=== PATIENT | male | born 1990 | race Caucasian/White ===

== ENCOUNTER 2020-10-31 13:00 | Inpatient (IN) | payer OTHER ==
[~2020-10-31] VITALS: Ht 198.1 cm; Wt 88.8 kg
--- NOTE | 2020-10-31 13:16 | NUR ---
PT STRAIGHT BACKED TO ROOM AT THIS TIME. PT PLACED INTO GURNEY AND CHANGED INTO GOWN. SEIZURE PADS IN PLACE AT THIS TIME. PT ATTACHED TO VS AND CYCLE COUNTER. TECH AT BS FOR EKG AND AT BS FOR PT HISTORY. PER PT AND SPOUSE, PT IS AN ALCOHOLIC WHO HAD 3 COCKTAILS TODAY, LAST ONE 1.5 HOURS PRIOR TO ARRIVAL AT ED. PT POST ICTAL BUT AAOX3 AT THIS TIME. PT GCS 15. PT AND SPOUSE EDUCATED ON ER PROCESS AND VERBALIZES UNDERSTANDING. CALL LIGHT IS WITHIN REACH.
--- NOTE | 2020-10-31 14:00 | NUR ---
REPORT OF PT TO JUDI TORRES. ALL QUESTIONS ANSWERED.
--- NOTE | 2020-10-31 14:17 | NUR ---
ASSUMED CARE OF PT FROM JUDI ANDERSON. PT RESTING IN [facility], MONITORING IN PLACE, VIK AT THIS TIME, JAMEE.
--- NOTE | 2020-10-31 14:31 | NUR ---
PT AMBULATED STEADILY TO RESTROOM. PT BACK TO ROOM, RESTING IN [facility] HECTOR AT THIS TIME, JAMEE.
[2020-10-31 14:40] LABS: ALBUMIN 4.1 g/dL (3.4-5.0); ANION GAP 12 mmol/L (5-15); CALCIUM 8.9 mg/dL (8.5-10.1); CHLORIDE 99 mmol/L (98-107); CREATININE 1.12 mg/dL (0.7-1.3)
[2020-10-31 14:57] LABS: MEAN CORPUSCULAR HEMOGLOBIN 32.1 pg (27.5-34.5); MEAN CORPUSCULAR HGB CONC 35.4 g/dL (33.2-36.2); PLATELET COUNT 88 x10^3/uL (130-400); RED BLOOD COUNT 4.68 x10^6/uL (4.38-5.82); RED CELL DISTRIBUTION WIDTH 12.3 % (9.4-14.8)
[2020-10-31] MEDS ORDERED: SODIUM CHLORIDE FLUSH 10ML SYR IVF ONE (15:00)
[2020-10-31] MEDS ORDERED: POTASSIUM CHLORIDE 20 MEQ PACKET PO ONE (15:00)
[2020-10-31] MEDS ORDERED: POTASSIUM CHLORIDE 40 MEQ in SODIUM CHLORIDE 0.9% 500 ML IV ONE ×2 (15:00→18:30)
--- NOTE | 2020-10-31 15:16 | NUR ---
report recvd from Gianni LAU and jeovany assumed.
[2020-10-31 15:45] LABS: MD YES
[2020-10-31] MEDS ORDERED: POTASSIUM CHLORIDE 20 MEQ PACKET ONE (15:45)
[2020-10-31 15:48] LABS: <PLATELET ESTIMATE> DECREASED; <PLT MORPHOLOGY> NORMAL PLT MORPH; <RBC MORPHOLOGY> NORMAL; BASOS% (MANUAL) 2 % (0-1); LYMPH#(MANUAL) 1.98 x10^3/uL (1-3.4); LYMPHS% (MANUAL) 38 % (22-44); MONOS#(MANUAL) 0.83 x10^3/uL (0.3-2.7); MONOS% (MANUAL) 16 % (2-9); SEG#(MANUAL) 2.29 x10^3/uL (1.8-6.8); SEGS% (MANUAL) 44 % (42-75)
--- NOTE | 2020-10-31 16:03 | NUR ---
report to Mary Ann LAU.
[2020-10-31 16:47] VITALS: BP 145/90
[2020-10-31] MEDS ORDERED: ONDANSETRON 2MG/ML, 2ML IVPush PRN (18:30)
[2020-10-31] MEDS ORDERED: DOCUSATE 100 MG CAPSULE PO PRN (18:30)
[2020-10-31] MEDS ORDERED: MAGNESIUM SULFATE PMX 4GM/100M 100 ML IVPB ONE (18:30)
[2020-10-31] MEDS ORDERED: THIAMINE 200 MG in SODIUM CHLORIDE 0.9% 50 ML IV ONE (18:30)
[2020-10-31] MEDS ORDERED: ACETAMINOPHEN 325 MG TABLET PO PRN (18:30)
[2020-10-31] MEDS: ENOXAPARIN 40 MG/0.4 ML SQ SCH (19:46)
[2020-10-31] MEDS: POTASSIUM CHLORIDE 20 MEQ PACKET PO SCH (19:46)
[2020-10-31 20:00] VITALS: BP 132/74
[2020-10-31] MEDS: THIAMINE 100MG TABLET PO SCH (20:59)
[2020-10-31 22:05] VITALS: BP 132/74
[2020-11-01 00:11] VITALS: BP 123/82
[2020-11-01] MEDS: POTASSIUM CHLORIDE 20 MEQ PACKET PO SCH ×8 (01:31→23:41)
[2020-11-01 05:23] LABS: BASOPHILS % (AUTO) 3 % (0-1); EOSINOPHILS % (AUTO) 1 % (1-7); LYMPHOCYTES % (AUTO) 35 % (22-44); MEAN CORPUSCULAR HEMOGLOBIN 31.8 pg (27.5-34.5); MEAN CORPUSCULAR HGB CONC 35.3 g/dL (33.2-36.2); MEAN PLATELET VOLUME 8.9 fL (7.4-10.4); MONOCYTES % (AUTO) 21 % (2-9); NEUTROPHILS % (AUTO) 41 % (42-75); PLATELET COUNT 62 x10^3/uL (130-400); RED BLOOD COUNT 4.31 x10^6/uL (4.38-5.82); RED CELL DISTRIBUTION WIDTH 12.3 % (9.4-14.8)
[2020-11-01 05:30] LABS: CHLORIDE 100 mmol/L (98-107)
[2020-11-01 05:38] LABS: ALANINE AMINOTRANSFERASE 88 U/L (12-78); ALBUMIN 3.5 g/dL (3.4-5.0); ALKALINE PHOSPHATASE 171 U/L (45-117); ANION GAP 14 mmol/L (5-15); BILIRUBIN,TOTAL 1.5 mg/dL (0.2-1.0); CALCIUM 8.3 mg/dL (8.5-10.1); CREATININE 0.65 mg/dL (0.7-1.3); TOTAL PROTEIN 7.5 g/dL (6.4-8.2)
[2020-11-01] MEDS ORDERED: POTASSIUM CHLORIDE 40 MEQ in SODIUM CHLORIDE 0.9% 500 ML IV ONE ×2 (06:00→06:30)
[2020-11-01 06:36] LABS: MD SCAN
[2020-11-01 07:17] VITALS: BP 139/75
[2020-11-01] MEDS ORDERED: LORazepam 0.5MG TABLET PO PRN (08:30)
[2020-11-01] MEDS ORDERED: LORazepam 2 MG/ML, 1ML IV PRN ×4 (08:30)
[2020-11-01] MEDS ORDERED: LORazepam 1MG TABLET PO PRN ×3 (08:30)
[2020-11-01] MEDS: MULTIVITAMINS/MINERALS TABLET PO SCH (09:20)
[2020-11-01] MEDS: CHLORDIAZEPOXIDE 25 MG CAPSULE PO SCH ×3 (09:20→20:03)
[2020-11-01] MEDS: FOLIC ACID 1 MG TABLET PO SCH (09:20)
[2020-11-01] MEDS: THIAMINE 100MG TABLET PO SCH ×2 (09:21→20:03)
[2020-11-01] MEDS: MAGNESIUM OXIDE 400 MG TABLET PO SCH (09:21)
[2020-11-01] MEDS: SPIRONOLACTONE 25 MG TABLET PO SCH ×2 (09:25→20:03)
[2020-11-01 12:02] VITALS: BP 142/80
[2020-11-01 19:41] VITALS: BP 143/79
[2020-11-01] MEDS: ENOXAPARIN 40 MG/0.4 ML SQ SCH (20:00)
[2020-11-02 00:24] VITALS: BP 102/66
[2020-11-02 01:26] VITALS: BP 140/82
[2020-11-02] MEDS: CHLORDIAZEPOXIDE 25 MG CAPSULE PO SCH ×3 (02:21→21:30)
[2020-11-02] MEDS: POTASSIUM CHLORIDE 20 MEQ PACKET PO SCH ×4 (04:07→21:29)
[2020-11-02 07:07] VITALS: BP 145/84
[2020-11-02] MEDS ORDERED: MAGNESIUM SULFATE PMX 4GM/100M 100 ML IVPB ONE (07:30)
[2020-11-02] MEDS: FOLIC ACID 1 MG TABLET PO SCH (09:30)
[2020-11-02] MEDS: SPIRONOLACTONE 25 MG TABLET PO SCH ×2 (09:30→21:30)
[2020-11-02] MEDS: THIAMINE 100MG TABLET PO SCH ×2 (09:30→21:30)
[2020-11-02] MEDS: MULTIVITAMINS/MINERALS TABLET PO SCH (09:30)
[2020-11-02] MEDS: MAGNESIUM OXIDE 400 MG TABLET PO SCH (09:30)
[2020-11-02 13:16] VITALS: BP 151/81
[2020-11-02 14:38] LABS: MEAN PLATELET VOLUME 9.5 fL (7.4-10.4)
[2020-11-02 14:43] LABS: BASOPHILS % (AUTO) 1 % (0-1); EOSINOPHILS % (AUTO) 2 % (1-7); LYMPHOCYTES % (AUTO) 17 % (22-44); MEAN CORPUSCULAR HEMOGLOBIN 31.9 pg (27.5-34.5); MEAN CORPUSCULAR HGB CONC 34.8 g/dL (33.2-36.2); MONOCYTES % (AUTO) 16 % (2-9); NEUTROPHILS % (AUTO) 64 % (42-75); PLATELET COUNT 58 x10^3/uL (130-400); RED BLOOD COUNT 4.44 x10^6/uL (4.38-5.82)
[2020-11-02 14:44] LABS: MD NO
[2020-11-02 19:27] VITALS: BP 134/88
[2020-11-02] MEDS: ENOXAPARIN 40 MG/0.4 ML SQ SCH (21:31)
[2020-11-03 00:48] VITALS: BP 135/88
[2020-11-03] MEDS: CHLORDIAZEPOXIDE 25 MG CAPSULE PO SCH ×2 (03:56→08:36)
[2020-11-03] MEDS: POTASSIUM CHLORIDE 20 MEQ PACKET PO SCH ×5 (03:56→21:26)
[2020-11-03 07:05] VITALS: BP 125/75
[2020-11-03] MEDS ORDERED: POTASSIUM CHLORIDE 20 MEQ TAB.ER.PRT ONE (08:24)
[2020-11-03] MEDS: MULTIVITAMINS/MINERALS TABLET PO SCH (08:36)
[2020-11-03] MEDS: THIAMINE 100MG TABLET PO SCH ×2 (08:36→21:25)
[2020-11-03] MEDS: MAGNESIUM OXIDE 400 MG TABLET PO SCH ×2 (08:36→21:25)
[2020-11-03] MEDS: FOLIC ACID 1 MG TABLET PO SCH (08:36)
[2020-11-03] MEDS: SPIRONOLACTONE 25 MG TABLET PO SCH (08:36)
[2020-11-03 13:55] VITALS: BP 139/85
[2020-11-03] MEDS: CHLORDIAZEPOXIDE 10 MG CAPSULE PO SCH ×2 (17:21→21:25)
[2020-11-03 18:39] VITALS: BP 149/89
[2020-11-03] MEDS: ENOXAPARIN 40 MG/0.4 ML SQ SCH ×2 (20:00→21:26)
[2020-11-03 21:48] LABS: MICROSCOPIC NOT IND
[2020-11-03 21:55] LABS: CHLORIDE,URINE RANDOM 60 mmol/L; POTASSIUM,URINE RANDOM 7 mmol/L; SODIUM,URINE RANDOM 75 mmol/L
[2020-11-03 22:00] LABS: CREATININE,URINE RANDOM 62.2 mg/dL
[2020-11-04 00:52] VITALS: BP 135/85
[2020-11-04] MEDS: POTASSIUM CHLORIDE 20 MEQ PACKET PO SCH ×3 (01:47→08:42)
[2020-11-04 04:54] LABS: ALBUMIN 3.4 g/dL (3.4-5.0); ANION GAP 6 mmol/L (5-15); CALCIUM 8.4 mg/dL (8.5-10.1); CHLORIDE 106 mmol/L (98-107); CREATININE 0.62 mg/dL (0.7-1.3)
[2020-11-04 07:41] VITALS: BP 147/91
[2020-11-04] MEDS: FOLIC ACID 1 MG TABLET PO SCH (08:42)
[2020-11-04] MEDS: MULTIVITAMINS/MINERALS TABLET PO SCH (08:42)
[2020-11-04] MEDS: CHLORDIAZEPOXIDE 10 MG CAPSULE PO SCH (08:42)
[2020-11-04] MEDS: THIAMINE 100MG TABLET PO SCH (08:42)
[2020-11-04] MEDS: MAGNESIUM OXIDE 400 MG TABLET PO SCH (08:43)
[2020-11-04] MEDS ORDERED: MAGN400T50 PO (10:54)
[2020-11-04] MEDS ORDERED: MULT1TAB9 PO (10:54)
[2020-11-04] MEDS ORDERED: POTA20PA25 PO (10:54)
[2020-11-04] MEDS ORDERED: CHLO10CA6 PO (10:54)
== END 2020-11-04 11:45 | disposition home or self-care (01) | DRG 641 ==
LOC: ED 13:47 → EDIP 15:09 → SUATTDRO 15:19 → 4WST 16:28 → DCLOUNGE 11-04 11:37
PROVIDERS: ADMIT Internal Medicine; ATTEND Internal Medicine
DX: E87.6 Hypokalemia (principal); K62.5 Hemorrhage of anus and rectum; F10.239 Alcohol dependence with withdrawal, unspecified; R29.0 Tetany; R56.9 Unspecified convulsions; E83.42 Hypomagnesemia; F45.8 Other somatoform disorders; M62.838 Other muscle spasm; R74.01 Elevation of levels of liver transaminase levels; Z83.3 Family history of diabetes mellitus
CPT/HCPCS: 36415; 71045; 80048; 80053; 80069; 81003; 82040; 82088; 82436; 82570; 83735; 84100; 84132; 84133; 84156; 84300; 84443; 85025; 93005; 96372; 96374; 96375; 99291; G0378; J1650; J2405; J3411; J3480; J3475; J7040